=== PATIENT | male | born 1980 | race Caucasian/White ===

== ENCOUNTER → 2020-04-28 | Outpatient (CLI) | payer OTHER | END | disposition home or self-care (01) | LOC: RAD 14:39 | PROVIDERS: ATTEND Physician Assistant Surgical | DX: S46.292A Other injury of muscle, fascia and tendon of other parts of biceps, left arm, initial encounter (principal); M66.822 Spontaneous rupture of other tendons, left upper arm; X58.XXXA Exposure to other specified factors, initial encounter; Y93.89 Activity, other specified; Y92.89 Other specified places as the place of occurrence of the external cause; Y99.8 Other external cause status ==